=== PATIENT | female | born 1950 | race Hispanic/Latino ===

== ENCOUNTER 2023-03-12 23:39 | Emergency (ER) | payer OTHER ==
--- OUTSIDE RECORDS SUMMARY | 2023-03-12 23:41 | XMS REPORT | Continuity of Care Document ---
:1950 Author Organization [facility] t Address [address] [place] [address] [place] [address] Care Team Providers Name Role Phone Pcp, Patient Does Not Have A Primary Care Physician +[id number] MARY MAYER Attending Clinician Unavailable Mary Ortiz Attending Clinician Payers Payer Name Policy Type Policy Number Effective Date Expiration Date S [facility] [id number] 2021 MEDICARE GOLD 00:00:00 MEDICAID [facility] [id number] 2021 00:00:00 Problems Condition Condition Condition Status Onset Resolution Last Treating Co mments Source Name Details Category Date Date Treatment Clinician Date Abdominal Abdominal Disease Active Uni vers pain pain 3-21 ity of 00:00: [address] Allergies, Adverse Reactions, Alerts Allergy Allergy Status Severity Reaction(s) Onset Inactive Treating Comm ents Source Name Type Date Date Clinician NO KNOWN Drug Active Univers ALLERGIE Class ity of S [facility] Social History Social Habit Start Date Stop Date Quantity Comments Source Exposure to Not sure [facility] SARS-CoV-2 [facility] (event) Branch Alcohol intake 2016-12-26 2016-12-26 Current [facility] 00:00:00 00:00:00 non-drinker of [facility] alcohol [place] (finding) Sex Ass[birth year] At [birth year] Universit y of 00:00:00 00:00:00 [facility] Smoking Status Start Date Stop Date Source Never smoker [facility] Branch Medications Ordered Filled Start Stop Current Ordering Indication Dosage Frequency Signature Comments Components Source Medication Medication Date Date Medication? Clinician (SIG) Name Name ketorolac 2020-10 No 30mg 30 mg, Unive rs (TORADOL) 10-03 Intramuscu ity of injection 16:45: 15:48 lar, ONCE, [place] 30 mg 00 :00 1 dose, On Medical Tue Branch 08/03/21 at 1145, NICK
Fa culty member approving Restricted medication : LIN PRITESH diazePAM 2020-10 No 5mg 5 mg, Univers (VALIUM) 10-03 Intramuscu ity of injection 5 16:45: 15:49 lar, ONCE, [place] mg 00 :00 1 dose, On Medical Tue Branch 08/03/21 at 1145, STAT dexamethaso 2020-10 No 10mg 10 mg, Uni vers ne 10-03 Intramuscu ity of (DECADRON 16:45: 15:49 lar, ONCE, [place] PHOSPHATE) 00 :00 1 dose, On Med ical injection Tue Branch 10 mg 08/03/21 at 1145, STAT methocarbam 2020-10 Yes [id number] 750mg Take 1 Univers oL -02 tablet by ity of (ROBAXIN-75 00:00: mouth 4 [place] as 0) 750 mg 00 (four) Medical tablet times Branch daily as needed for Pain (scale 7-10). predniSONE 2020-10 Yes [id number] 60mg Take 3 Univers 20 mg 1-02 tablets by ity of tablet 00:00: mouth [place] 00 every Medical morning. Branch HYDROcodone 2017-0 Yes 1{tbl} Take 1 Un mike -acetaminop 3-22 tablet by ity of hen 5-325 00:00: mouth [place] mg tablet 00 every 4 Medical (four) Branch hours as needed for Pain unrelieved by non-narcot ic analgesics . Vital Signs Vital Name Observation Time Observation Value Comments Source Systolic blood 2021-08-03 17:01:00 154 mm[Hg] Univer sity of [facility] Diastolic blood 2021-08-03 17:01:00 80 mm[Hg] [facility] 2021-08-03 17:01:00 70 /min [facility] Body temperature 2021-08-03 17:01:00 36.67 [facility] Oxygen saturation in 2021-08-03 17:01:00 98 /min [facility] Arterial blood by [facility] Pulse oximetry [place] Respiratory rate 2021-08-03 15:13:00 16 /min [facility] Body height 2021-08-03 15:13:00 154.9 cm [facility] Body weight 2021-08-03 15:13:00 92.08 kg [facility] BMI 2021-08-03 15:13:00 38.36 kg/m2 [facility] Procedures This patient has no known procedures. Encounters Start End Encounter Admission Attending Care Care Encounter Source Date/Time Date/Time Type Type Clinicians Facility Department ID 2021-08-03 2021-08-03 Emergency X MORENO, [facility] ERT [id number] [facility] 10:15:00 12:32:00 MARY ity [facility] 2021-08-03 2021-08-03 Emergency [place], [facility] [id number] [facility] 10:15:00 12:32:00 Mary SARMIENTO [id number] i ty [facility] [id number] [facility] [id number] [facility] 084 Branch Results This patient has no known results.
[2023-03-13] MEDS ORDERED: ONDANSETRON 4 MG/2 ML VIAL ONE (00:05)
[2023-03-13] MEDS ORDERED: NA CHLORIDE 0.9% 1,000 ML ONE (00:05)
[2023-03-13] MEDS ORDERED: FAMOTIDINE 20 MG/2 ML VIAL IV ONE (00:10)
[2023-03-13 00:40] LABS: Absolute Lymphocytes (CBC) 2.3 K/uL (0.7-4.9); Hematocrit 37.3 % (36.0-45.0); Lymphocytes % 14.7 % (15.3-44.8); MCV 84.8 fL (80-100); MPV 10.3 fL (7.6-11.3)
[2023-03-13 00:46] LABS: Albumin 3.9 g/dL (3.4-5.0); Bilirubin Total 0.3 mg/dL (0.2-1.0); Potassium 3.5 mEq/L (3.5-5.1); Protein, Total 7.6 g/dL (6.4-8.2)
--- NOTE | 2023-03-13 02:06 | ER ---
Nurse's Notes [facility] Name: Sakshi Sood Age: 72 yrs Sex: Female : 1950 Arrival Date: 03/12/2023 Time: 23:39 Bed 7 Private MD: Diagnosis: Noninfective gastroenteritis and colitis, unspecified Presentation: 03/12 23:54 Chief complaint: Patient's son or daughter states: She reheated some tacos this morning jb4 and has been having nausea and vomiting. Coronavirus screen: At this time, the client does not indicate any symptoms associated with coronavirus-19. Ebola Screen: No symptoms or risks identified at this time. Initial Sepsis Screen: Does the patient meet any 2 criteria? HR > 90 bpm. Does the patient have a suspected source of infection? No. Patient's initial sepsis screen is negative. Risk Assessment: Do you want to hurt yourself or someone else? Patient reports no desire to harm self or others. Onset of symptoms was March 12, 2023. Transition of care: patient was not received from another setting of care. 23:54 Method Of Arrival: Ambulatory jb4 23:54 Acuity: CLAUDIA 3 jb4 Triage Assessment: 03/13 00:30 General: Appears uncomfortable. GI: Reports vomiting. rv Historical: - Allergies: 03/12 23:59 No Known Allergies; jb4 - PMHx: 23:59 HTN; jb4 - Immunization history:: Adult Immunizations up to date, Pneumococcal vaccine is not up to date, Flu vaccine is not up to date. - Social history:: Smoking status: Patient denies any tobacco usage or history of. Screenin:59 [facility] ED Fall Risk Assessment (Adult) History of falling in the last 3 months, jb4 including since admission No falls in past 3 months (0 pts) Confusion or Disorientation No (0 pts). Abuse screen: Denies threats or abuse. Nutritional screening: No deficits noted. Tuberculosis screening: No symptoms or risk factors identified. Assessment: 23:59 General: Appears in no apparent distress. uncomfortable, Behavior is calm, cooperative, jb4 appropriate for age. Pain: Denies pain. Neuro: Level of Consciousness is awake, alert, obeys commands, Oriented to person, place, time, situation. Cardiovascular: Patient's skin is warm and dry. Respiratory: Airway is patent Respiratory effort is even, unlabored, Respiratory pattern is regular, symmetrical. GI: Abdomen is non-distended, obese, Pt is actively vomiting bile. : No signs and/or symptoms were reported regarding the genitourinary system. EENT: No signs and/or symptoms were reported regarding the EENT system. Derm: Skin is intact, Skin is pink, warm \T\ dry. Musculoskeletal: Circulation, motion, and sensation intact. Range of motion: intact in all extremities. 03/13 00:48 Reassessment: Patient appears in no apparent distress at this time. Patient and/or jb4 family updated on plan of care and expected duration. Pain level reassessed. Patient is alert, oriented x 3, equal unlabored respirations, skin warm/dry/pink. 01:45 Reassessment: Patient appears in no apparent distress at this time. Patient and/or jb4 family updated on plan of care and expected duration. Pain level reassessed. Patient is alert, oriented x 3, equal unlabored respirations, skin warm/dry/pink. 02:01 Reassessment: Provider notified that pt O2 drops to 89 -90 % on RA when sleeping. Pt jb4 denies SOB and O2 sats increase to 94% on RA when awake. No new orders at this time. Vital Signs: 03/12 23:54 BP 182 / 106; Pulse 119; Resp 20; Temp 97.8(TE); Pulse Ox 92% ; Weight 97.5 kg (M); jb4 03/13 00:48 BP 141 / 78; Pulse 89; Resp 19; Pulse Ox 93% on R/A; rv 00:48 BP 145 / 79; Pulse 89; Resp 18; Pulse Ox 100% on R/A; rv 01:45 BP 118 / 71; Pulse 102; Resp 21; Pulse Ox 90% on R/A; jb4 ED Course: 03/12 23:42 Patient arrived in ED. ja2 23:50 Aidan Yañez MD is Attending Physician. bs3 23:51 Yamil Abdullahi RN is Primary Nurse. rv 23:55 Inserted saline lock: 20 gauge in right antecubital area, using aseptic technique. rv Blood collected. 23:59 Triage completed. jb4 23:59 Arm band placed on right wrist. jb4 23:59 Patient has correct armband on for positive identification. Bed in low position. Call jb4 light in reach. Side rails up X 1. Client placed on continuous cardiac and pulse oximetry monitoring. NIBP monitoring applied. carbonation equipment tender on. 03/13 00:01 CBC with Diff Sent. rv 00:01 CMP Sent. rv 00:01 Lipase Sent. rv 00:04 No provider procedures requiring assistance completed. rv 01:19 CT Abd/Pelvis - IV Contrast Only In Process Unspecified. EDMS 02:14 IV discontinued, intact, bleeding controlled, No redness/swelling at site. Pressure jb4 dressing applied. Administered Medications: 00:00 Drug: NS 0.9% IV 1000 ml Route: IV; Rate: 1 bolus; Site: right antecubital; rv 00:00 Drug: Ondansetron IVP 4 mg Route: IVP; Site: right antecubital; rv 00:01 Drug: Famotidine IVP 20 mg Route: IVP; Site: right antecubital; rv Medication: 03/12 23:59 VIS not applicable for this client. jb4 Outcome: 03/13 02:06 Discharge ordered by . bs3 02:13 Discharged to home ambulatory, with family. jb4 02:13 Condition: stable 02:13 Discharge instructions given to patient, Instructed on discharge instructions, follow up and referral plans. medication usage, Demonstrated understanding of instructions, follow-up care, medications, Prescriptions given X 1. 02:14 Patient left the ED. jb4 Signatures: Dispatcher [employer] EDTanner Resendiz RN RN jb4 Yamil Abdullahi RN RN rv Alexander, Jessica ja2 Stein, Brandon, MD MD bs3 Corrections: (The following items were deleted from the chart) 00:54 00:48 BP 141 / 78; Pulse 99bpm; Resp 19bpm; Pulse Ox 93% RA; jb4 rv
--- NOTE | 2023-03-13 02:07 | EDPHYS ---
Physician Documentation [facility] Name: Sakshi Sood Age: 72 yrs Sex: Female : 1950 Arrival Date: 03/12/2023 Time: 23:39 Bed 7 Private MD: ED Physician Aidan Yañez HPI: 03/12 23:59 This 72 yrs old Female presents to ER via Ambulatory with complaints of bs3 Vomiting/Diarrhea, Weakness. 23:59 72-year-old female history of hypertension presents with nausea vomiting and diarrhea bs3 that started after eating leftover barbacoa tacos she notes 3+ episodes of nonbloody diarrhea which is watery and multiple episodes of vomiting she has crampy abdominal pain as well no fevers or chills no chest pain shortness of breath she has associated nausea. Historical: - Allergies: 23:59 No Known Allergies; jb4 - PMHx: 23:59 HTN; jb4 - Immunization history:: Adult Immunizations up to date, Pneumococcal vaccine is not up to date, Flu vaccine is not up to date. - Social history:: Smoking status: Patient denies any tobacco usage or history of. ROS: 23:59 Constitutional: Negative for fever, chills bs3 23:59 All other systems are negative. Exam: 23:59 Constitutional: Patient is uncomfortable actively vomiting Head/Face: Normocephalic, bs3 atraumatic. Eyes: Pupils equal round and reactive to light, extra-ocular motions intact. Lids and lashes normal. ENT: mmm, no posterior phyarngeal erythema Chest/axilla: Normal chest wall appearance and motion. Nontender with no deformity. No lesions are appreciated. Cardiovascular: Tachycardic no murmur Respiratory: Lungs have equal breath sounds bilaterally, clear to auscultation, no respiratory distress Abdomen/GI: Soft, non-tender, no rebound or guarding Back: No spinal tenderness. No costovertebral tenderness. Full range of motion. Skin: Warm, dry with normal turgor. Normal color with no rashes, no lesions, and no evidence of cellulitis. MS/ Extremity: Pulses equal, no cyanosis. Neurovascular intact. Full, normal range of motion. Neuro: Awake and alert, GCS 15, oriented to person, place, time, and situation. Cranial nerves II-XII grossly intact. Motor strength 5/5 in all extremities. Sensory grossly intact. Psych: Awake, alert, with orientation to person, place and time. Behavior, mood, and affect are within normal limits. Vital Signs: 23:54 BP 182 / 106; Pulse 119; Resp 20; Temp 97.8(TE); Pulse Ox 92% ; Weight 97.5 kg (M); jb4 03/13 00:48 BP 141 / 78; Pulse 89; Resp 19; Pulse Ox 93% on R/A; rv 00:48 BP 145 / 79; Pulse 89; Resp 18; Pulse Ox 100% on R/A; rv 01:45 BP 118 / 71; Pulse 102; Resp 21; Pulse Ox 90% on R/A; jb4 MDM: 03/12 23:50 Patient medically screened. bs3 23:59 Data reviewed: vital signs, nurses notes. ED course: Patient with nausea vomiting bs3 diarrhea likely secondary to food poisoning possible viral gastroenteritis given her age we will do CT to rule out intra abdominal pathology we will hydrate and reassess. 03/13 02:05 ED course: Work-up consistent with enteritis of note the patient becomes hypoxic when bs3 she is sleeping without symptoms she was told that she had similar episodes when she had her gallbladder removed and was advised to follow-up with primary care for sleep study which she did not do we discussed with the daughter at bedside given a copy of labs and CT return precautions given. 03/12 23:58 Order name: CBC with Diff; Complete Time: 00:50 bs3 03/12 23:58 Order name: CMP; Complete Time: 00:50 bs3 03/12 23:58 Order name: Lipase; Complete Time: 00:50 bs3 03/12 23:58 Order name: CT Abd/Pelvis - IV Contrast Only bs3 03/12 23:58 Order name: IV Saline Lock; Complete Time: 00:00 bs3 03/12 23:58 Order name: Labs collected and sent; Complete Time: 00:00 bs3 Administered Medications: 00:00 Drug: NS 0.9% IV 1000 ml Route: IV; Rate: 1 bolus; Site: right antecubital; rv 00:00 Drug: Ondansetron IVP 4 mg Route: IVP; Site: right antecubital; rv 00:01 Drug: Famotidine IVP 20 mg Route: IVP; Site: right antecubital; rv Disposition Summary: 03/13/23 02:06 Discharge Ordered Location: Home bs3 Problem: new bs3 Symptoms: have improved bs3 Condition: Stable bs3 Diagnosis - Noninfective gastroenteritis and colitis, unspecified bs3 Followup: bs3 - With: Private Physician - When: 1 - 2 days - Reason: Re-evaluation by your physician Discharge Instructions: - Discharge Summary Sheet bs3 - Food Choices to Help Relieve Diarrhea, Adult bs3 - Viral Gastroenteritis, Adult bs3 Forms: - Medication Reconciliation Form bs3 - Thank You Letter bs3 Prescriptions: - ondansetron 8 mg Oral tablet,disintegrating - take 1 tablet by ORAL route every 8 hours; 12 tablet; Refills: 0, Product bs3 Selection Permitted Signatures: Dispatcher [employer] Tanner Amos RN RN jb4 Yamil Abdullahi RN RN rv Aidan Yañez MD MD bs3
[2023-03-13 02:33] VITALS: TEMP 97.8
[2023-03-13 02:40] VITALS: BP 118/71; O2SAT 90
--- NOTE | 2023-03-13 12:49 | RAD REPORT ---
EXAM DESCRIPTION: Abdomen Pelvis W Contrast CLINICAL HISTORY: 72 years Female ABD PAIN COMPARISON: None TECHNIQUE: CT of the abdomen and pelvis with intravenous contrast. All CT scans at this facility use dose modulation, iterative reconstruction, and/or weight based dosi ng when appropriate to reduce radiation dose to as low as reasonably achievable. FINDINGS: Lower thorax: Bibasilar atelectasis. Coronary artery calcifications. Abdomen: Stomach: Small hiatal hernia. Liver: No focal lesions. No intrahepatic ductal distention. Gallbladder: Surgically absent. Pancreas: Atrophic changes. Spleen: Within normal limits Right kidney: No hydronephrosis. Cortical scarring. Subcentimeter hypodensity in the superior pole, t oo small to characterize Left kidney: No hydronephrosis. Cortical scarring. No focal lesion. Adrenal glands: Within normal limits Vascular structures: Atherosclerosis of the abdominal aorta and major branches. Nodes: No lymphadenopathy by size criteria Pelvis: Small bowel: No significant distention. Fluid-filled contents with mucosal hyperenhancement and wall thickening. Appendix: Within normal limits Colon: No distention or acute pericolonic edema. Colonic diverticulosis. Peritoneum: No free intraperitoneal fluid or air. Bones: No acute bone findings. Bladder: Unremarkable. Reproductive organs: No acute findings. Calcified uterine fibroid noted. Soft tissues: Tiny fat-containing umbilical hernia. IMPRESSION: 1. Fluid-filled small bowel contents with mucosal hyperenhancement and wall thickening , can be seen in setting of enteritis. 2. Colonic diverticulosis without diverticulitis. Electronically signed by: Cam Woo MD 03/13/2023 1:34 AM CDT Due to temporary technical issues with the PACS/Fluency reporting system, reports are being signed by the in house radiologist without review as a courtesy to ensure prompt reporting. The interpreting r adiologist is fully responsible for the content of the report.
== END 2023-03-13 02:14 | disposition home or self-care (01) ==
LOC: ER 23:39
DX: K52.9 Noninfective gastroenteritis and colitis, unspecified (principal); I10 Essential (primary) hypertension
CPT/HCPCS: 85025; 36415; 83690; 80053; 74177; 96375; 96374; 99285; Q9967

== ENCOUNTER 2023-04-04 13:14 | Emergency (ER) | payer OTHER ==
--- OUTSIDE RECORDS SUMMARY | 2023-04-04 13:17 | XMS REPORT | Continuity of Care Document ---
:1950 Author Organization [facility] t Address [address] [place] [address] [place] [address] Care Team Providers Name Role Phone Pcp, Patient Does Not Have A Primary Care Physician +[phone] 00-0000 MARY MAYER Attending Clinician Unavailable Mary Ortiz Attending Clinician Payers Payer Name Policy Type Policy Number Effective Date Expiration Date S [facility] [id number] 2021 MEDICARE GOLD 00:00:00 MEDICAID [facility] [id number] 2021 00:00:00 Problems Condition Condition Condition Status Onset Resolution Last Treating Co mments Source Name Details Category Date Date Treatment Clinician Date Abdominal Abdominal Disease Active Uni vers pain pain 3-21 ity of 00:00: [address] Allergies, Adverse Reactions, Alerts Allergy Allergy Status Severity Reaction(s) Onset Inactive Treating Comm ents Source Name Type Date Date Clinician NO KNOWN Drug Active Univers ALLERGIE Class ity of S [facility] Social History Social Habit Start Date Stop Date Quantity Comments Source Exposure to Not sure [facility] SARS-CoV-2 [facility] (event) Branch Alcohol intake 2016-12-26 2016-12-26 Current [facility] 00:00:00 00:00:00 non-drinker of [facility] alcohol [place] (finding) Sex Ass[birth year] At [birth year] Universit y of 00:00:00 00:00:00 [facility] Smoking Status Start Date Stop Date Source Never smoker [facility] Branch Medications Ordered Filled Start Stop Current [...] 08/03/21 at 1145, STAT methocarbam 2020-10 Yes [id number] 750mg Take 1 Univers oL -02 tablet by ity of (ROBAXIN-75 00:00: mouth 4 [place] as 0) 750 mg 00 (four) Medical tablet times Branch daily as needed for Pain (scale 7-10). predniSONE 2020-10 Yes [id number] 60mg Take 3 Univers 20 mg 1-02 [...] 2021-08-03 17:01:00 154 mm[Hg] Univer sity of [facility] Diastolic blood 2021-08-03 17:01:00 80 mm[Hg] [facility] Heart rate 2021-08-03 17:01:00 70 /min [facility] Body temperature 2021-08-03 17:01:00 36.67 [facility] Oxygen saturation in 2021-08-03 17:01:00 98 /min [facility] Arterial blood by [facility] Pulse oximetry [place] Respiratory rate 2021-08-03 15:13:00 16 /min [facility] Body height 2021-08-03 15:13:00 154.9 cm [facility] Body weight 2021-08-03 15:13:00 92.08 kg [facility] BMI 2021-08-03 15:13:00 38.36 kg/m2 [facility] Procedures This patient has no known procedures. Encounters Start End Encounter Admission Attending Care Care Encounter Source Date/Time Date/Time Type Type Clinicians Facility Department ID 2021-08-03 2021-08-03 Emergency X MORENO, [facility] ERT [id number] [facility] 10:15:00 12:32:00 MARY ity [facility] 2021-08-03 2021-08-03 Emergency [place], [facility] [id number] [facility] 10:15:00 12:32:00 Mary SARMIENTO [id number] i ty [facility] [id number] [facility] [id number] [facility] 084 Branch Results This patient has no known results.
--- NOTE | 2023-04-04 13:36 | ER ---
Nurse's Notes [facility] Name: Sakshi Sood Age: 72 yrs Sex: Female : 1950 Arrival Date: 04/04/2023 Time: 13:14 Bed 20 Private MD: Diagnosis: Acute suppurative otitis media Presentation: 04/04 13:17 Chief complaint: Patient states: THAO ear pain/pressure; stated "can hear heartbeat". x vg1 2 days Also stated sore throat and unable to hear well. Coronavirus screen: Vaccine status: Patient reports being unvaccinated. Client denies travel out of the [place] in the last 14 days. Ebola Screen: Patient negative for fever greater than or equal to 101.5 degrees Fahrenheit, and additional compatible Ebola Virus Disease symptoms Patient denies exposure to infectious person. Patient denies travel to an Ebola-affected area in the 21 days before illness onset. Initial Sepsis Screen: Does the patient meet any 2 criteria? No. Patient's initial sepsis screen is negative. Does the patient have a suspected source of infection? No. Patient's initial sepsis screen is negative. Risk Assessment: Do you want to hurt yourself or someone else? Patient reports no desire to harm self or others. Onset of symptoms was April 02, 2023. 13:17 Method Of Arrival: Ambulatory vg1 13:17 Acuity: CLAUDIA 3 vg1 Triage Assessment: 13:22 General: Appears in no apparent distress. uncomfortable, Behavior is cooperative. Pain: vg1 Denies pain. EENT: Reports decreased hearing THAO ear pressure. Neuro: Reports dizziness, Denies headache. Respiratory: Airway is patent Respiratory effort is even, unlabored. Historical: - Allergies: 13:22 No Known Allergies; vg1 - Home Meds: 13:22 Ozempic subcutaneous [Active]; vg1 - PMHx: 13:22 HTN; Diabetes mellitus; vg1 - PSHx: 13:22 Cholecystectomy; vg1 - Immunization history:: Client reports having NOT received the Covid vaccine. - Social history:: Smoking status: Patient denies any tobacco usage or history of. Screenin:03 [facility] ED Fall Risk Assessment (Adult) History of falling in the last 3 months, bp including since admission No falls in past 3 months (0 pts). Abuse screen: Denies threats or abuse. Denies injuries from another. Nutritional screening: No deficits noted. Tuberculosis screening: No symptoms or risk factors identified. Assessment: 14:03 Reassessment: DC HOME AMBULATORY. bp Vital Signs: 13:17 BP 170 / 100; Pulse 66; Resp 16; Temp 98.5(O); Pulse Ox 100% on R/A; Weight 86.18 kg; vg1 Height 5 ft. 1 in. ; 13:17 Body Mass Index 35.90 (86.18 kg, 154.94 cm) 1 ED Course: 13:15 Patient arrived in ED. ts1 13:20 Daquan Sawyer MD is Attending Physician. rt 13:22 Triage completed. vg1 13:22 Arm band placed on. vg1 13:26 Nicolás Schafer RN is Primary Nurse. bp 14:03 Patient has correct armband on for positive identification. Bed in low position. Call bp light in reach. Side rails up X2. Adult w/ patient. 14:03 No provider procedures requiring assistance completed. Patient did not have IV access bp during this emergency room visit. Administered Medications: No medications were administered Medication: 14:03 VIS not applicable for this client. bp Outcome: 13:36 Discharge ordered by . rt 14:03 Discharged to home ambulatory, with family. bp 14:03 Condition: stable 14:03 Discharge instructions given to patient, family, Instructed on discharge instructions, follow up and referral plans. medication usage, Demonstrated understanding of instructions, follow-up care, medications, Prescriptions given X 2. 14:04 Patient left the ED. bp Signatures: Nicolás Schafer, RN Swetha Cole RN RN vg Daquan Sawyer MD MD rt Conchita Reyes PAS PAS ts1
--- NOTE | 2023-04-04 13:36 | EDPHYS ---
Physician Documentation [facility] Name: Sakshi Sood Age: 72 yrs Sex: Female : 1950 Arrival Date: 04/04/2023 Time: 13:14 Bed 20 Private MD: ED Physician Daquan Sawyer HPI: 04/04 13:56 This 72 yrs old Female presents to ER via Ambulatory with complaints of rt Hearing problem. 13:56 Patient presents to the ED with 2 weeks of bilateral ear pressure, pain. She denies a rt head pressure. He states that she can sometimes hear her heartbeat in her ears. The patient states that she has had nasal congestion, sore throat during that time. Patient was described eardrops by her PCP which she states did not do anything for her. Denies other acute complaints at this time. Symptoms are moderate severity, no other aggravating alleviating factors.. Historical: - Allergies: 13:22 No Known Allergies; vg1 - Home Meds: 13:22 Ozempic subcutaneous [Active]; vg1 - PMHx: 13:22 HTN; Diabetes mellitus; vg1 - PSHx: 13:22 Cholecystectomy; vg1 - Immunization history:: Client reports having NOT received the Covid vaccine. - Social history:: Smoking status: Patient denies any tobacco usage or history of. ROS: 13:56 Constitutional: Negative for fever, chills, and weight loss, Cardiovascular: Negative rt for chest pain, palpitations, and edema, Respiratory: Negative for shortness of breath, cough, wheezing, and pleuritic chest pain, Abdomen/GI: Negative for abdominal pain, nausea, vomiting, diarrhea, and constipation, MS/Extremity: Negative for injury and deformity, Skin: Negative for injury, rash, and discoloration, Neuro: Negative for headache, weakness, numbness, tingling, and seizure, Psych: Negative for depression, anxiety, suicide ideation, homicidal ideation, and hallucinations. 13:56 ENT: Positive for Positive for ear pain, pressure, decreased hearing. Exam: 13:56 Constitutional: This is a well developed, well nourished patient who is awake, alert, rt and in no acute distress. Chest/axilla: Normal chest wall appearance and motion. Nontender with no deformity. No lesions are appreciated. Cardiovascular: Regular rate and rhythm with a normal S1 and S2. No gallops, murmurs, or rubs. Normal PMI, no JVD. No pulse deficits. Respiratory: Lungs have equal breath sounds bilaterally, clear to auscultation and percussion. No rales, rhonchi or wheezes noted. No increased work of breathing, no retractions or nasal flaring. Abdomen/GI: Soft, non-tender, with normal bowel sounds. No distension or tympany. No guarding or rebound. No evidence of tenderness throughout. Skin: Warm, dry with normal turgor. Normal color with no rashes, no lesions, and no evidence of cellulitis. MS/ Extremity: Pulses equal, no cyanosis. Neurovascular intact. Full, normal range of motion. Neuro: Awake and alert, GCS 15, oriented to person, place, time, and situation. Cranial nerves II-XII grossly intact. Motor strength 5/5 in all extremities. Sensory grossly intact. Cerebellar exam normal. Normal gait. Psych: Awake, alert, with orientation to person, place and time. Behavior, mood, and affect are within normal limits. 13:56 ENT: No posterior pharyngeal erythema or exudates, somewhat swollen nasal turbinates, left TM effusion, exudative otitis media noted to the right ear, no evidence of mastoiditis, no otitis externa. Vital Signs: 13:17 BP 170 / 100; Pulse 66; Resp 16; Temp 98.5(O); Pulse Ox 100% on R/A; Weight 86.18 kg; vg1 Height 5 ft. 1 in. ; 13:17 Body Mass Index 35.90 (86.18 kg, 154.94 cm) vg1 MDM: 13:27 Patient medically screened. rt 13:56 Differential Diagnosis Otitis media, otitis externa. Data reviewed: vital signs, nurses rt notes. Test considered but Not performed: CT: Patient has obvious effusion/exudates on both of the ears. I do not suspect any intracranial pathology as she also describes no head pressure or headache. Do not believe that CT scan is indicated to rule out intracranial hemorrhage, tumor.. Counseling: I had a detailed discussion with the patient and/or guardian regarding: the historical points, exam findings, and any diagnostic results supporting the discharge/admit diagnosis, the need for outpatient follow up, to return to the emergency department if symptoms worsen or persist or if there are any questions or concerns that arise at home. Administered Medications: No medications were administered Disposition Summary: 04/04/23 13:36 Discharge Ordered Location: Home rt Problem: an ongoing problem rt Symptoms: are unchanged rt Condition: Stable rt Diagnosis - Acute suppurative otitis media rt Followup: rt - With: Private Physician - When: 2 - 3 days - Reason: Discharge Instructions: - Discharge Summary Sheet rt Forms: - Medication Reconciliation Form rt - Thank You Letter rt - Antibiotic Education rt - Prescription Opioid Use rt - [email or web address] rt Prescriptions: - triamcinolone acetonide 55 mcg Nasal Aerosol, [place] - spray 2 spray by INTRANASAL route daily administer into each nostril; 1 Each; rt Refills: 0, Product Selection Permitted - Amoxicillin 875 mg Oral Tablet - take 1 tablet by ORAL route every 12 hours for 10 days; 20 tablet; Refills: 0, rt Product Selection Permitted Signatures: Swetha Shore RN RN vg1 Daquan Sawyer MD MD rt
[2023-04-04 14:08] VITALS: BP 170/100; TEMP 98.5; O2SAT 100
== END 2023-04-04 14:04 | disposition home or self-care (01) ==
LOC: ER 13:14
DX: H66.003 Acute suppurative otitis media without spontaneous rupture of ear drum, bilateral (principal)
CPT/HCPCS: 99283